=== PATIENT | female | born 1995 | race Caucasian/White ===

== ENCOUNTER 2016-07-04 12:47 | Inpatient (IN) | payer SELFPAY ==
[~2016-07-04] VITALS: Ht 162.6 cm; Wt 51.8 kg
--- NOTE | ~2016-07-04 | CON ---
PATIENT'S NAME: LIZBETH ANDRADE [facility] AGE: 20 Y [address] ROOM: [place] [address] LOCATION: ED ADMIT DATE: 07/04/2016 Consultation DISCHARGE DATE: FAMILY PHYSICIAN: Manish Rodriguez MD ATTENDING PHYSICIAN: Manish Rodriguez REFERRING PHYSICIAN: Cathy Peterson MD CHIEF COMPLAINT: This is a 20-year-old female, who was admitted today by Dr. Rodriguez after we discussed about her condition for evaluation of acute ulcerative colitis and control of symptoms of diarrhea and abdominal pain. HISTORY OF PRESENTING ILLNESS: This 20-year-old female, seen by Dr. Rodriguez in the office, has history of abdominal pain for the last 2 days, which was very severe, associated with nausea and vomiting. She had colonoscopy on the 30 of June for evaluation of abdominal pain and lower GI bleeding. She was diagnosed to have ulcerative colitis, seen by Dr. Peterson at that time. Pain is intermittent, severe. Stool frequency is up to 20 per day. There are small frequent stools, and occasionally, there are large voluminous stools. Her appetite has reduced, and she had lost about 10 pounds of weight in the last 2 weeks. She has been under training for the last 2 months under [employer]. MEDICATIONS: List include, 1. Ciprofloxacin twice daily. 2. Delzicol 400 mg twice daily. 3. Dicyclomine 20 mg 4 times a day. 4. Diphenhydramine and atropine, 2.5 4 times a day. ALLERGIES: NO KNOWN DRUG ALLERGIES. REVIEW OF SYSTEMS: This young lady looked quite sick. On admission, she was dehydrated and had severe weakness. PHYSICAL EXAMINATION: GENERAL: Reveals a well-developed young female, physical appearance of asthenic female, who is not in acute distress. EYES, EARS, NOSE, AND THROAT: Negative. HEAD: Normocephalic, atraumatic. NECK: Supple. No lymphadenopathy. CHEST: Clear to palpation, percussion, auscultation. CARDIAC: Both heart sounds normal. No S3 or murmur. PATIENT'S NAME: LIZBETH ANDRADE [facility] AGE: 20 Y [address] ROOM: [place] [id number] LOCATION: [facility] ADMIT DATE: 07/04/2016 Consultation DISCHARGE DATE: FAMILY PHYSICIAN: Manish Rodriguez MD ATTENDING PHYSICIAN: Manish Rodriguez VITAL SIGNS: Her blood pressure was 134/66; pulse was 114 on admission and now it is 90 per minute; and temperature 98.9 degrees Fahrenheit. Weight was 51.75 kg. LABORATORY DATA: Her lab data shows WBC count now is 5.6, in Dr. Rodriguez's office the band cells were 20%, which is a marked shift to the left. Her repeat CBC in the hospital now shows her white count is 5.6, RBCs 4.8, hemoglobin 14.5, hematocrit 44, and platelets 284; neutrophil percent is 52.9. PT and INR are normal. PH is 7.31, pCO2 of 54, pO2 of 15. Electrolytes are normal. Glucose 74. Anion gap is 13.7. CO2 is 22. BUN and creatinine are normal. Liver function tests are normal. Her CT scan of abdomen on 06/21/2016 was unremarkable. ASSESSMENT: With a chronic history of almost 2 years duration of abdominal pain, recurrent diarrhea, and worsening symptoms until she had colonoscopy and diagnosed to have ulcerative colitis, she most likely has ulcerative colitis, which is not under control yet, but her lab data has improved. She had stool cultures during her last 2 emergency visits. These stool cultures were positive for Staphylococcus aureus and Bacillus. This is quite possible that she may have superadded infection on the background of ulcerative colitis. RECOMMENDATIONS: 1. I agree with Dr. Rodriguez for starting her on ciprofloxacin 200 mg IV,twice daily. 2. She should continue the Delzicol 800 mg t.i.d. treatment for ulcerative colitis. 3. She should have steroid enemas 100 mg/60 mL twice daily. 4. She is to be well hydrated because of dehydration from recurrent loose stools. We appreciate sharing care of this patient. MD GLORIA MENDOZA/xander /[id number] CC: Manish Rodriguez MD d: 07/05/16 0433 t: 07/05/16 1424, CONSULTATION REPORT
[~2016-07-04 12:47] MED LIST: DELZICOL400 M1 PO; JUNEL FE 1.5 M1 EACH PO; MESALAMINE R
[2016-07-04] MEDS ORDERED: IBUPROFEN400 MG PO (14:41)
--- NOTE | 2016-07-04 19:40 | NUR ---
Significant Event: Pt admitted for service of Dr. Rodriguez. Pt reports that she has had bloody diarrhea for 3 weeks. She had a colonoscopy 06/30/16. Pt has had 2 BM's since admitted, first was bloody and second was blood clots in the bottom of the toilet. She has been vomiting for 3 days. She had some dry heaving here. She was given Zofran at 1420, pt verbalized relief and even felt hungry. She was able to drink Gatorade without emesis. Iv was started in her left hand with 1 attempt. She was started on cipro and Flagyl IV. Pt is pale with dry cracked lips and very dry skin. Her heart rate was 140 apically on admit. Follow up: monitor bloody stools
--- NOTE | 2016-07-05 04:23 | NUR ---
Significant Event: Patient is alert and oriented x 3. VSS on room air. HRs in the 80s-1 teens. SBPs in the 100s-130s. Max temp of 99.4. Up ad heron. BM x 6 this shift, blood tinged. GI MD saw last night, Hydrocortisone Enemas ordered BID. K pad in room for right sided abdomen/lateral back pain. Left hand IV with NS running at 100 ml/hr. Receiving intermittent antibiotics. Patient is pleasant and cooperative with cares. Follow up:
[2016-07-05 05:48] LABS: HEMOGLOBIN 9.3 g/dL (11.0-15.0); MCV 87.9 fl (83.0-98.0); MPV 9.4 fl (9.4-12.4); RDW-CV 12.3 % (11.9-14.6); WBC 6.5 K/uL (4.0-11.0)
[2016-07-05 05:49] LABS: HEMATOCRIT 27.6 % (33.0-46.0); MCH 29.6 pg (27.0-34.0); MCHC 33.7 gm/dL (32.0-36.5); PLATELET COUNT 342 K/uL (150-450); RBC 3.14 M/uL (3.50-5.00)
[2016-07-05 05:59] LABS: ALK PHOS 65 IU/L (33-138); ANION GAP 9.7 (10.0-19.0); AST 8 IU/L (10-40); BLOOD UREA NITROGEN 4 mg/dL (6-24); CALCIUM 7.6 mg/dL (8.5-10.5); CHLORIDE 108 mMol/L (96-110); CO2 26 mMol/L (22-32); CREATININE 0.5 mg/dL (0.5-1.1); ESTIMATED GFR (MDRD EQUATION) > 60; POTASSIUM 3.7 mMol/L (3.7-5.1); SODIUM 140 mMol/L (135-145); TOTAL BILIRUBIN 0.3 mg/dL (0.0-1.5); TOTAL PROTEIN 5.4 g/dL (6.0-8.4)
[2016-07-05 06:00] LABS: ALBUMIN 1.9 gm/dL (3.5-5.0); ALT < 10 IU/L (12-78)
[2016-07-05 06:53] LABS: ABSOLUTE NEUTROPHIL CT (ANC) 5.3 K/uL (1.8-7.8); BANDED NEUTROPHIL # 0.7 K/uL (0.0-0.1); BANDED NEUTROPHILS % 10 %; LYMPHOCYTE # 0.7 K/uL (0.8-4.0); LYMPHOCYTE % 10 %; MONOCYTE # 0.5 K/uL (0.0-1.0); SEGMENTED NEUTROPHIL # 4.6 K/uL (1.8-7.8); SEGMENTED NEUTROPHIL % 71 %
--- NOTE | 2016-07-05 15:06 | NUR ---
Met with patient at the bedside today. Introduced myself and explained the role of the care management department. 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 She states that she does not anticipate any discharge needs at this time. Will continue to follow and offer supports as needed.
--- NOTE | 2016-07-05 17:30 | NUR ---
Significant event: C/O cramping this am, relieved by Tyleol. Up ambulating. Ate 75% of breakfast and 50% of lunch. Bowel sounds hypoactive. Had 700 out in liquid BM it is brownish/reddish in color.
--- NOTE | 2016-07-06 04:04 | NUR ---
Significant Event: Patient is alert and oriented x 3. VSS on room air. HRs in the 70s-90s. SBPs in the 100s-120s. Afebrile. Up ad heron in room. Left hand IV running at TKO, receiving intermittent IV antibiotics. Tylenol given for abdominal cramping at 0342. K pad to abdomen. 400 ml out of liquid brownish/red stool. Patient is pleasant and cooperative with cares. Follow up: Home today
[2016-07-06] MEDS ORDERED: TYLENOL EXTRA500 MG PO (09:49)
[2016-07-06] MEDS ORDERED: DELTASONE20 M1 PO (09:49)
[2016-07-06] MEDS ORDERED: CIPRO500 MG PO (09:51)
== END 2016-07-06 10:30 | disposition disaster alternative care site (69) | DRG 386 ==
LOC: GPED 12:47
PROVIDERS: ADMIT Family Medicine
DX: K51.90 Ulcerative colitis, unspecified, without complications (principal); D62 Acute posthemorrhagic anemia; E86.0 Dehydration; D50.9 Iron deficiency anemia, unspecified
CPT/HCPCS: J0744; J2405; J7030; J7050; J7512

== ENCOUNTER 2016-07-17 14:31 | Inpatient (IN) | payer SELFPAY ==
[~2016-07-17] VITALS: Ht 162.6 cm; Wt 55.5 kg
--- NOTE | ~2016-07-17 | CON ---
PATIENT'S NAME: LIZBETH ANDRADE [facility] AGE: 21 Y [address] ROOM: [address] [place], [place] [address] LOCATION: [facility] ADMIT DATE: 07/17/2016 Consultation DISCHARGE DATE: FAMILY PHYSICIAN: Manish Rodriguez MD ATTENDING PHYSICIAN: Nevaeh Sanabira DATE OF CONSULTATION: 07/20/2016 REFERRING PHYSICIAN: MARKEL CHEEK MD REASON FOR CONSULTATION: Positive blood culture for strep viridans. HISTORY: Ms. Andrade is a 21-year-old female, who began having rectal bleeding around June 09 or . She was ultimately diagnosed with ulcerative colitis and has been treated with steroids. She, however, continued to have multiple loose bloody stools daily and then while she was at home, she felt like she was going to black out. It was noted that she was severely tachycardic, hypotensive, and had hemoglobin of 7.5. She had been given a couple units of blood and this has improved. She felt like at home, she maybe felt hot on occasion but could not check her temperature. She occasionally felt cold as well. She did not have paola rigors. On presentation to the hospital with her hypertension, she had blood cultures drawn and now one of the sets has turned up positive for strep viridans. The other set drawn at that time was negative. She was started on vancomycin orally and Zosyn on the and repeat blood cultures from yesterday, thus far have no growth. She did have a fever, while she was here in the hospital, per my conversation with Dr. Rodriguez, but I do not see it recorded. In the notes, she has the T-max that I can see is 99.7. In any case, she had a colonoscopy done that revealed severe colitis and biopsies were taken. Consideration for biologic but given her positive blood culture, ID was asked to see. She is not having as much tachycardia. She does not have any chest pain. Her breathing is okay. Her abdomen hurts all over, but especially on the right side. No urinary symptoms. She has a 1-year-old son at home and just turned 21, the day prior to admission. PAST MEDICAL HISTORY: Significant for ulcerative colitis and then she had a vaginal delivery in December 2014. MEDICATIONS: She came in on prednisone, Delzicol, and then she was on Cipro. She had been on metronidazole, apparently when she was hospitalized as well, and she is on oral contraceptives. PATIENT'S NAME: LIZBETH ANDRADE [facility] AGE: 21 Y [address] ROOM: [id number] [place], [place] [address] LOCATION: [facility] ADMIT DATE: 07/17/2016 Consultation DISCHARGE DATE: FAMILY PHYSICIAN: Manish Rodriguez MD ATTENDING PHYSICIAN: Nevaeh Sanabria ALLERGIES: NONE KNOWN. SOCIAL HISTORY: She does not smoke, does not drink, does not use illicit drugs. She has been in the , but apparently does not have any insurance coverage now. . FAMILY HISTORY: Positive for syncope in her father. Mom has depression, anxiety, multiple sclerosis, and borderline personality disorders. Diabetes runs in her family and heart problems. REVIEW OF SYSTEMS: All remaining review of systems is otherwise negative except as per the HPI with pertinent positives and negatives mentioned there. She has had a 10 pound weight loss with this illness, however. PHYSICAL EXAMINATION: GENERAL: She does not look like she has any acute distress. She is awake and alert and oriented. She is nontoxic. She is pale. VITAL SIGNS: Temperature is 98.1, blood pressure 101/64, pulse 85, respirations 21. HEENT: NC/AT. EOMI. PERRLA. Oropharynx clear. NECK: Supple. LUNGS: Clear. HEART: Little tachy, but regular. ABDOMEN: Soft. It is diffusely tender. EXTREMITIES: Without cyanosis, clubbing, or edema. SKIN: Without rash. LABORATORY DATA: White count was 13.2, hemoglobin 10.6, platelet count 479. Sedimentation rate was 85. Creatinine 0.5. CRP 17.7. Procalcitonin on 07/17 was 0.09. Blood cultures on 07/17, one of the sets grew strep viridans and the other was negative. Stool culture grew Staph aureus. C. diff toxin was negative. Giardia and Cryptosporidium antigens were negative. Repeat blood cultures on 07/19 have no growth today x3 sets. ASSESSMENT/PLAN: 1. Severe recalcitrant steroid nonresponsive ulcerative colitis. 2. Positive blood culture. PLAN: She has positive blood culture for viridans strep in one set, with the other PATIENT'S NAME: LIZBETH ANDRADE [facility] AGE: 21 Y [address] ROOM: [address] [place] [address] LOCATION: [facility] ADMIT DATE: 07/17/2016 Consultation DISCHARGE DATE: FAMILY PHYSICIAN: Manish Rodriguez MD ATTENDING PHYSICIAN: Nevaeh Sanbaria set being negative. She was afebrile at the time of admission, but apparently she has been febrile here, however I do not see it charted. Positive blood cultures, likely a contaminant and it is not in both sets. However, it is hard to know. This could certainly be from gut translocation as well. We would recommend continuing her on Zosyn for now and this will provide more than adequate coverage for the viridans strep should it be significant. Again, I do not even think that it probably is. From my standpoint, I think she should look at proceeding with biologic therapy, if that was felt to be her most effective therapy at this point in time, as the significance of the positive blood culture is not completely clear and can be easily cover it with antibiotics. If there is a significant bacteremia then the colon is the source and the source needs to have source control. Please call with questions. I did speak with Dr. Rodriguez today. MD SUDHIR DEE/mariel /[id number] d: 07/20/16 1505 t: 07/26/16 1452, CONSULTATION REPORT
--- NOTE | ~2016-07-17 | ER ---
PATIENT'S NAME: LIZBETH ANDRADE [facility] AGE: 21 Y [address] ROOM: [place] [address] LOCATION: [facility] ADMIT DATE: 07/17/2016 ER/Outpatient Report DISCHARGE DATE: FAMILY PHYSICIAN: Manish Rodriguez MD ATTENDING PHYSICIAN: Nevaeh Sanabria CHIEF COMPLAINT: Weakness, tunnel vision, and syncope. HISTORY OF PRESENT ILLNESS: The patient has a history of Crohn disease and was recently hospitalized for same. She states that she felt like she had been getting better on her steroids over the last 2 days, however, she began to have significant tunnel vision and weakness today which was causing her significant problems. She had been seen earlier this week. She states that her back has been a little bit uncomfortable, but she denies any significant pain at this time. She states her blood pressure is normally around 100 and her heart rate has been pretty fast lately. She denies any fevers associated with this or other issues. She did start steroids about 2 weeks ago and has been taking them as prescribed. She always has blood in her stool and has not noticed any changes with that. She has not had any issues, but has been a little nauseated. She had been able to keep things down until this afternoon. PAST MEDICAL HISTORY: Documented on the record and reviewed by me. SOCIAL HISTORY: Documented on the record and reviewed by me. MEDICATIONS: Documented on the record and reviewed by me. ALLERGIES: DOCUMENTED ON THE RECORD AND REVIEWED BY ME. REVIEW OF SYSTEMS: All systems reviewed and negative except as noted in the HPI. PHYSICAL EXAMINATION: VITAL SIGNS: Initial vital signs, blood pressure 97/54, pulse 137, respiratory rate 16, temperature 99.5, SpO2 is 99% on room air. Pain is rated 7/10. GENERAL: Age-appropriate female with very ill appearance, pale and weak. NEUROLOGIC: The patient is awake and alert. Her GCS is 15. She does follow commands in all extremities but is weak and deliberate in her speech and PATIENT'S NAME: LIZBETH ANDRADE [facility] AGE: 21 Y [address] ROOM: [place] [address] LOCATION: [facility] ADMIT DATE: 07/17/2016 ER/Outpatient Report DISCHARGE DATE: FAMILY PHYSICIAN: Manish Rodriguez MD ATTENDING PHYSICIAN: Nevaeh Sanabria. HEENT: Normocephalic, atraumatic. The eyes are PERRL. The oropharynx is slightly dry with no erythema or exudates. NECK: Supple without adenopathy. HEART: Tachycardic with no murmurs. Sinus rhythm on the monitor. LUNGS: Clear to auscultation bilateral. No rhonchi, wheezes, or rales. ABDOMEN: Very benign. No focal tenderness, rebound, guarding, or masses. BACK: Without tenderness in the midline. The flanks do not have CVA tenderness. EXTREMITIES: Cool with intact pulses, very pale, difficult to detect capillary refill. SKIN: Extremely pale with cool extremities, but otherwise grossly intact. LABORATORY DATA AND X-RAYS: No imaging was obtained for this patient. Labs: WBC is 14.0, hemoglobin of 8.8, and platelets of 695, slight bandemia of 2.1. INR is 1.1. Sodium 136, potassium 3.8, chloride is 98, CO2 is 26, BUN is 7, creatinine 0.8. GFR is greater than 60. LFTs are grossly normal. Serum lactate is 1.2. Repeat hemoglobin and hematocrit at 7.5, and 24. CRP is 12.8. Beta HCG is below detectable threshold. Urinalysis: No leukocytes or nitrates. No blood. Micro with 2-5 WBCs, no RBCs, 2-5 epithelial cells, few bacteria. Blood type is A positive. Procalcitonin 0.09. Orthostatic vital signs: The patient had stable blood pressures. Her heart rate increased over 20 beats per minute from lying to sitting. IMPRESSION: Severe orthostasis and hypovolemia with probable anemia. EMERGENCY DEPARTMENT COURSE: The patient was evaluated as above. I was concerned initially for sepsis based on her blood pressures being low and they did trend down to the low 80s at one point. She remained otherwise stable. She was given 2 L bolus of normal saline with no improvement in her blood pressures. We gave her some stress dose steroids to help stabilize her out of concern for possible adrenal suppression. She did not meet transfusion threshold. She has no outward signs of DVT or PE. Based on that presentation, I am recommending admission to the hospital. She will be admitted to the [facility] team for further evaluation and treatment. PATIENT'S NAME: LIZBETH ANDRADE [facility] AGE: 21 Y [address] ROOM: [place] [address] LOCATION: [facility] ADMIT DATE: 07/17/2016 ER/Outpatient Report DISCHARGE DATE: FAMILY PHYSICIAN: Manish Rodriguez MD ATTENDING PHYSICIAN: Nevaeh Sanabria MD FRIEDA PENA/xander /[id number] d: 07/18/16 1645 t: 07/19/16 0642, OUTPATIENT REPORT
--- NOTE | ~2016-07-17 | CON ---
PATIENT'S NAME: LIZBETH ANDRADE [facility] AGE: 21 Y [address] ROOM: [address] [place], [place] [address] LOCATION: [facility] ADMIT DATE: 07/17/2016 Consultation DISCHARGE DATE: FAMILY PHYSICIAN: Manish Rodriguez MD ATTENDING PHYSICIAN: Nevaeh Sanabria REFERRING PHYSICIAN: MARKEL CHEEK MD REASON FOR CONSULTATION: This is a 21-year-old female, who is re-admitted. She was seen earlier by me on 07/04/2016 when she was in [facility] with ulcerative colitis. She is re-admitted again with abdominal pain, diarrhea, and dizziness. HISTORY OF PRESENT ILLNESS: A 21-year-old female, who is complaining of dizziness at home, and she states she had tingling feeling around her lips. She was feeling like blackout, and she was also having difficulty hearing things. Her called me, and I asked him to bring to the emergency room for evaluation and possible admission. She has a long history of ulcerative colitis, for which she was taking Delzicol 400 mg 2 tablets 3 times a day. She had a course of ciprofloxacin during her last admission. She was advised hydrocortisone enemas, but she could not afford to take those. Instead, she was taking 40 mg of prednisone daily. She saw me in the clinic 2 days ago with continuing abdominal pain, and at which time, her evaluation showed that she had recurrent diarrhea, recurrent bleeding from GI tract and also persistent abdominal pain to level of 5 to 6 over 10 on a daily basis. I discussed with her possibility of switching from Delzicol to biologicals, and she agreed. I met the eligibility services representative from [employer], who had offered free samples of golimumab with brand name of Simponi. She is to have 200 mg at the outset followed by 100 mg after 2 weeks and then 100 mg subcu on monthly basis. Before she could visit again in the clinic, she had this relapse with dizziness. She was given 2 L of fluids in the emergency room, and at the floor, she is feeling much better. No dizziness and no blackout; however, her blood pressure is 82/60 on lying down and 83/60 on sitting up. For evaluation of pretreatment for golimumab, she was tested for hepatitis B surface antigen, chest x-ray, TB test, liver function tests, BUN, creatinine, and CBC. PAST MEDICAL HISTORY: Ulcerative colitis, anemia, she claims that she has anemia also from childhood. She had colonoscopy on June [address] Peterson, who had seen severe ulcerative colitis. MEDICATIONS: She has been on: 1. Ciprofloxacin. 2. Delzicol 800 mg t.i.d. 3. Occasional dicyclomine for abdominal pain. PATIENT'S NAME: LIZBETH ANDRADE [facility] AGE: 21 Y [address] ROOM: [id number] [place], [place] [address] LOCATION: [facility] ADMIT DATE: 07/17/2016 Consultation DISCHARGE DATE: FAMILY PHYSICIAN: Manish Rodriguez MD ATTENDING PHYSICIAN: Nevaeh Sanabria 4. Diphenhydramine and atropine 2.5 mg 4 times a day. SOCIAL HISTORY: She denies smoking or drinking. Her smokes. REVIEW OF SYSTEMS: A 10-point review of system was negative other than mentioned above. PHYSICAL EXAMINATION: GENERAL: Reveals an asthenic female, who is sitting up comfortably in bed at this point. VITAL SIGNS: Show weight is 51.9 kg, blood pressure in the ER was 116/71, here in the room is 83/60, pulse 73 per minute, respiration is 16 per minute, temperature 98.6 degrees Fahrenheit. She is admitted under Dr. Sanabria. HEAD: Normocephalic, atraumatic. NECK: Supple. No lymphadenopathy. EYES: Conjunctivae are pale. Pupils are equally reactive bilaterally. CHEST: Clear to palpation, percussion, auscultation. CARDIAC: Both heart sounds are normal. No S3 or murmur. ABDOMEN: Tender mostly in the right lower quadrant and left lower quadrant as well as hypogastrium. Bowel sounds are hyperactive. NEUROLOGICAL: Cranial nerves II through XII intact. Motor system intact. There are no lateralizing signs. MUSCULOSKELETAL: There is no restrictive joint disease. She moves all extremities equally. SKIN/INTEGUMENT: Pale. There are no rashes. No erythema nodosum or pyoderma gangrenosum. LABORATORY DATA: Today shows her white count is 14,000, hemoglobin is 7.5, RBC is 3.08, platelets are 695,000. Her pH is 7.31, pCO2 is 54, pO2 is 15 probably venous blood. Glucose is 187, calcium is 8.2, albumin is 2.0, globulin is 4.8, CRP is 12.8. Urinalysis showed wbc is 2 to 5, protein is 15, few bacteria seen. IMAGING DATA: She had a CT scan earlier in June, which showed lungs, liver, biliary tree, pancreas, kidneys were normal. Bowel and mesentery were normal. There was no ascites. No bowel wall thickening was seen at that time. Small amount of air was seen in the small intestine at the lower quadrant with possible gastroparesis. Inasmuch, her hemoglobin is 7.5 g, it was 8.5 g earlier. It was decided to give her 1 unit of packed cells. This was done in the emergency room. ASSESSMENT AND PLAN: PATIENT'S NAME: LIZBETH ANDRADE [facility] AGE: 21 Y [address] ROOM: [place] [address] LOCATION: [facility] ADMIT DATE: 07/17/2016 Consultation DISCHARGE DATE: FAMILY PHYSICIAN: Manish Rodriguez MD ATTENDING PHYSICIAN: Nevaeh Sanabria This lady has relapsing ulcerative colitis, which is in acute state with high CRP levels and now leukocytosis, which is partly from the steroid intake. However, she is not doing well in terms of her symptoms of bleeding, diarrhea, abdominal pain. Therefore, it was contemplated to start her on biological treatment. She is supposed to have Simponi sample starting early this week, which may even be treated while she is in the hospital. This needs to be checked with the GI nurse in the outpatient, Maria Esther Hi is aware of plan about starting on biological treatment. In the interim, she needs to be continued on IV steroids and Delzicol. We appreciate sharing care of this patient. MD GLORIA MENDOZA/xander /[id number] CC: Nevaeh Sanabria MD d: t: 03/13/17 1100, CONSULTATION REPORT
--- NOTE | ~2016-07-17 | DS ---
PATIENT'S NAME: LIZBETH ANDRADE [facility] AGE: 21 Y [address] ROOM: [place] [address] LOCATION: [facility] [place] ADMIT DATE: 07/17/2016 Discharge Summary DISCHARGE DATE: 07/29/2016 FAMILY PHYSICIAN: Manish Rodriguez MD ATTENDING PHYSICIAN: Nevaeh Sanabria DISCHARGE DIAGNOSES: 1. Uncontrolled ulcerative colitis. 2. Anemia due to acute gastrointestinal blood loss. 3. Near syncope and tachycardia. 4. Positive blood cultures for Streptococcus mitis. CONSULTS DURING ADMISSION: 1. Gastroenterology. 2. Infectious Disease. PROCEDURES DURING ADMISSION: None. HOSPITAL COURSE: The patient is a 21-year-old female, who was recently diagnosed with ulcerative colitis and was admitted for severe colitis symptoms, which were unresponsive to outpatient therapy. The patient was anemic with a hemoglobin of 7.5 and received 2 units of packed red blood cells. The patient was seen by Gastroenterology and was started on Remicade, which she received 2 doses in the hospital. The patient also grew out positive blood cultures that shows Streptococcus mitis and Infectious Disease was consulted and she was switched from Zosyn to p.o. Ceftin and completed the full course. Upon day of discharge, the patient was tolerating diet well, not feeling syncopal at all, and also having formed stools without any blood in them. DISCHARGE CONDITION: Stable. DISPOSITION: Home. DISCHARGE MEDICATIONS: Please see list. DISCHARGE INSTRUCTIONS: The patient is to follow up with Dr. Rodriguez in approximately 2 weeks. The patient is to follow up with Gastroenterology as directed. PAUL CHERY MD PATIENT'S NAME: LIZBETH ANDRADE [facility] AGE: 21 Y [address] ROOM: [place] [address] LOCATION: [facility] [place] ADMIT DATE: 07/17/2016 Discharge Summary DISCHARGE DATE: 07/29/2016 FAMILY PHYSICIAN: Manish Rodriguez MD ATTENDING PHYSICIAN: Nevaeh Sanabria/xander /[id number] d: 07/29/16 0752 t: 08/04/16 1253, DISCHARGE SUMMARY
--- NOTE | ~2016-07-17 | CON ---
PATIENT'S NAME: LIZBETH ANDRADE [facility] AGE: 21 Y [address] ROOM: [place] [address] LOCATION: [facility] ADMIT DATE: 07/17/2016 Consultation DISCHARGE DATE: FAMILY PHYSICIAN: Manish Rodriguez MD ATTENDING PHYSICIAN: Nevaeh Sanabria DATE OF CONSULTATION: 07/19/2016 REFERRING PHYSICIAN: MARKEL RUIZ MD CARDIOLOGY CONSULTATION REASON FOR CARDIOLOGY CONSULTATION: Tachycardia. HISTORY OF PRESENT ILLNESS: This is a 21-year-old female, admitted with near syncope secondary to dehydration and anemia due to her ulcerative colitis. She has received 1 unit of packed red blood cells for a hemoglobin of 7.5, and has currently rebounded to 10.1. She is currently under the care of Dr. Rodriguez as well as Dr. Ruiz with GI Service. This consult requested due to the patient's presyncope in the setting of palpitations as well as complaints of shortness of breath and jaw pain. Also of note, she is noted to have a sinus tachycardia with a rate of 130 to 150 beats per minute on her air sampling and monitoring. Of note, she has recently spiked a temperature of 103.3. She currently denies chest pain at rest. She has previous complaints of palpitations and chest pains with anxiety in the settings of tachycardia. Her main complaint at the time of this consult is of increasing abdominal pain. In relation to her ulcerative colitis, she has been noted to be having up to 20 loose stools per day. PAST MEDICAL HISTORY: 1. Ulcerative colitis. 2. Previous vaginal delivery in 2014. 3. Previous tooth extraction as a young child. FAMILY HISTORY: The patient's father had a history of neurocardiogenic syncope. Her mother had a history of depression and anxiety as well as multiple sclerosis. There is also extensive history of diabetes in her maternal grandparents. Her father's parents have an extensive history of heart problems including coronary artery disease and coronary artery bypass grafting. SOCIAL HISTORY: The patient denies ever using tobacco. She also denies alcohol or illicit drug use. PATIENT'S NAME: LIZBETH ANDRADE [facility] AGE: 21 Y [address] ROOM: [place] [address] LOCATION: [facility] ADMIT DATE: 07/17/2016 Consultation DISCHARGE DATE: FAMILY PHYSICIAN: Manish Rodriguez MD ATTENDING PHYSICIAN: Nevaeh Sanabria CURRENT MEDICATIONS: 1. Pepcid 20 mg IV twice daily. 2. Solu-Medrol 40 mg IV daily. 3. Zosyn 3.375 g IV every 8 hours. 4. Folic acid 400 mcg p.o. daily. MEDICATION ALLERGIES: No known medication allergies. REVIEW OF SYSTEMS: Pertinent positive review of systems are listed in the HPI. All other review of systems evaluated and negative. LABORATORY DATA AND IMAGING STUDIES: Diagnostics: CMS evaluation shows a sodium of 142, potassium 3.8, BUN of 4, creatinine 0.5, and glucose of 151. CBC evaluation shows a white blood cell count of 9.4, hemoglobin of 10.1, hematocrit of 31.3, and platelets of 420,000. PHYSICAL EXAMINATION: VITAL SIGNS: Temperature 103.3, pulse 113, respirations 15, blood pressure 103/63, and O2 saturation 98% on room air. The patient weighs 52.2 kg. SKIN: [place], warm, and dry. EYES: Sclerae clear. No xanthelasmas. ENT: Oral mucosa is pink and moist. No jugular venous distention. No carotid bruits. CHEST: Respirations are even and unlabored. LUNGS: Clear to auscultation. HEART: Regular rate and rhythm. Normal S1 and S2. She continues in a sinus tachycardia on her air sampling and monitoring, and her EKG confirms sinus tachycardia with no acute ST changes suggestive of acute coronary syndrome. ABDOMEN: Soft, but tender to palpation. MUSCULOSKELETAL: Gait is normal. EXTREMITIES: Peripheral pulses palpable. No clubbing, cyanosis, or edema. PSYCHIATRIC: Alert and oriented. Mood and affect are appropriate. IMPRESSION AND PLAN: Per Dr. Menezes: 1. Sinus tachycardia in the setting of acute abdominal pain as well as fever. 2. Ulcerative colitis, currently under the care of Gastroenterology Service and plans for a sigmoidoscopy in the a.m. 3. We will continue to monitor, evaluate, and treat as appropriate. Thank you for this consult. Thank you for allowing [facility] to interact in the care of this patient. PATIENT'S NAME: LIZBETH ANDRADE [facility] AGE: 21 Y [address] ROOM: [id number] [place], [place] [address] LOCATION: [facility] ADMIT DATE: 07/17/2016 Consultation DISCHARGE DATE: FAMILY PHYSICIAN: Manish Rodriguez MD ATTENDING PHYSICIAN: Nevaeh Sanabria SAMMIE MONTENEGRO MD DEH/modl /[id number] d: 07/20/16 1527 t: 08/11/16 1754, CONSULTATION REPORT
--- NOTE | ~2016-07-17 | HP ---
PATIENT'S NAME: LIZBETH ANDRADE [facility] AGE: 21 Y [address] ROOM: [place] [address] LOCATION: [facility] ADMIT DATE: 07/17/2016 History & Physical DISCHARGE DATE: FAMILY PHYSICIAN: Manish Rodriguez MD ATTENDING PHYSICIAN: Jazzy Escalante DATE OF SERVICE: CHIEF COMPLAINT: Near syncope. HISTORY OF PRESENT ILLNESS: Lizbeth is a 21-year-old female, who has recently diagnosed with ulcerative colitis, who has been feeling very poorly over this past week. She continues to have 12 to 20 loose bloody stools per day and just today she started having feeling like her heart was pounding out of her chest and like she was going to pass out. She presented to the ER for evaluation. They gave her IV fluids for hydration. Her hemoglobin on admit was 8.8 and after hydration it was 7.5. Her pulse initially 140, blood pressure 90 systolic. She states the stools have been no more bloody than usual. She is not having that good response with her ulcerative colitis medications and she was scheduled to see the GI doctor tomorrow to possibly getting on something injectable. She has lost 10 pounds in the last month and a half. She is currently on Cipro for some kind of infectious etiology of her stools, the last thing I could find was Staph aureus. She states she is eating, she is hungry. No nausea or vomiting. She avoids anything carbonated or cow's milk. She feels feverish and very weak. PAST MEDICAL HISTORY: Operations include a tooth extraction as young child and a colonoscopy. Hospitalizations include June 2016 for ulcerative colitis and vaginal delivery in December 2014. Illnesses, ulcerative colitis. MEDICATIONS: She is on; 1. Prednisone 20 mg daily. 2. Delzicol 800 mg t.i.d. 3. Cipro at a dose of 500 mg b.i.d. 4. Oral contraceptives. States she just took her last active pill today. ALLERGIES: NONE KNOWN. PATIENT'S NAME: LIZBETH ANDRADE [facility] AGE: 21 Y [address] ROOM: [place] [address] LOCATION: [facility] ADMIT DATE: 07/17/2016 History & Physical DISCHARGE DATE: FAMILY PHYSICIAN: Manish Rodriguez MD ATTENDING PHYSICIAN: Jazzy Escalante FAMILY HISTORY: Positive for neurocardiogenic syncope in her father. Mother with depression, anxiety, multiple scleroses, and borderline personality disorder. Diabetes is prevalent on mother's side to include both grandparents and aunt and uncle. Her mother was gestational diabetic as well. Father's side is more significant for heart problems, in paternal grandfather, aunt, father, and also her maternal grandfather. SOCIAL HISTORY: She is a nonsmoker, nondrinker, and no history of illicit drugs. She has been in the for 11 months and just recently returned from 5 months of training in [place]. She has gone December 28 through May 30 and felt great when she returned. She then started getting ill mid June with a subsequent diagnosis of ulcerative colitis. She is . Her is working with cattle and she has a [id number] son at home. REVIEW OF SYSTEMS: GENERAL: She has had 10-pound weight loss with this illness. HEENT: She wears contacts, otherwise negative. CARDIOVASCULAR: She has had her heart pounding today and her chest has felt tight. RESPIRATORY: She is very dyspneic with any exertion. Otherwise, no coughing or wheezing. GI: See HPI. She does have dry heaves as she takes the Delzicol on an empty stomach. : No symptoms at all. LAPEL PADDER: She just recently had some breakthrough bleeding as she had been off her pill to have the colonoscopy done. Today is her last day of active pills. DERM: Negative. NEURO: She will have some intermittent numbness and tingling of the left arm at times and has noticed a little bit of swelling in her ankles. PSYCH: She has been a little bit down because of this illness, but no suicidal thoughts whatsoever and she thinks this is just normal. PHYSICAL EXAMINATION: GENERAL: Lizbeth is a well-developed, well-nourished, pale, 21-year-old female. She is alert, oriented, and cooperative. VITAL SIGNS: Temperature is 99.5, pulse is 137 and regular, respirations 16, blood pressure 97/54, weight 118, O2 saturations 99%, and height 5 feet and 4 inches. HEENT: Pupils are equal and reactive. Extraocular muscles are intact. Sclerae clear. Oropharynx shows normal mucous membranes. No ulcers or open areas. NECK: Supple without adenopathy or thyromegaly. HEART: Regular rate and rhythm. Now down to 104 after 2 L of fluids. PATIENT'S NAME: LIZBETH ANDRADE [facility] AGE: 21 Y [address] ROOM: [place] [address] LOCATION: [facility] ADMIT DATE: 07/17/2016 History & Physical DISCHARGE DATE: FAMILY PHYSICIAN: Manish Rodriguez MD ATTENDING PHYSICIAN: Jazzy Escalante LUNGS: Lung melendrez are clear. ABDOMEN: Bowel sounds are present. Abdomen is soft. She is exquisitely tender in the epigastrium and moderately tender in the left lower quadrant. EXTREMITIES: Clear. No edema. No rash. Moves all extremities well. LABORATORY WORK: Her initial hemoglobin was 8.8 and after hydration, it was 7.5. Urinalysis looks pretty unremarkable. Blood type is A positive with no antibodies. CRP is elevated at 12.8. Lactate is normal at 1.2. Sodium 136, potassium 3.8, glucose 187, BUN 7, and creatinine 0.8. GFR is greater than 60. Liver enzymes are normal. Albumin is low at 2.0. White count is 14,000. Platelets 695,000. PT and PTT are normal. Procalcitonin is normal at 0.09. ASSESSMENT: Near syncope, thought to be due to a combination of dehydration and anemia above due to ulcerative colitis. PLAN: She is being admitted. She has received 2 L of IV fluids, is on her third liter, has been typed and crossed for blood. We will give her 1 unit of blood and see how she responds to that. She was given IV dose of steroids in the ER. We will continue her oral medications for ulcerative colitis. We will have GI consult on her and Dr. Rodriguez will assume care in the morning. We will obtain another set of cultures to see if there is any new infective organisms contributing to her illness. Prognosis is fair. JAZZY ESCALANTE MD BME/modl /[id number] D: [id number] T: [id number] HISTORY & PHYSICAL
[~2016-07-17 14:31] MED LIST changes: +CIPRO500 MG PO; +DELTASONE20 M1 PO; +IBUPROFEN400 MG PO; +TYLENOL EXTRA500 MG PO
[2016-07-17 15:42] LABS: HEMATOCRIT 27.6 % (33.0-46.0); HEMOGLOBIN 8.8 g/dL (11.0-15.0); MCH 28.6 pg (27.0-34.0); MCHC 31.9 gm/dL (32.0-36.5); MCV 89.6 fl (83.0-98.0); MPV 8.7 fl (9.4-12.4); RBC 3.08 M/uL (3.50-5.00); RDW-CV 13.2 % (11.9-14.6)
[2016-07-17 15:43] LABS: PLATELET COUNT 695 K/uL (150-450)
[2016-07-17 15:54] LABS: INR - (THERAPEUTIC) 1.1 (0.9-1.1); PROTIME 11.4 SECONDS (9.6-11.1); PTT 25 SECONDS (25-32)
[2016-07-17 16:04] LABS: ALK PHOS 85 IU/L (33-138); ALT 28 IU/L (12-78); ANION GAP 15.8 (10.0-19.0); AST 16 IU/L (10-40); BLOOD UREA NITROGEN 7 mg/dL (6-24); CALCIUM 8.2 mg/dL (8.5-10.5); CHLORIDE 98 mMol/L (96-110); CO2 26 mMol/L (22-32); CREATININE 0.8 mg/dL (0.5-1.1); ESTIMATED GFR (MDRD EQUATION) > 60; POTASSIUM 3.8 mMol/L (3.7-5.1); SODIUM 136 mMol/L (135-145); TOTAL PROTEIN 6.8 g/dL (6.0-8.4)
[2016-07-17 16:08] LABS: TOTAL BILIRUBIN 0.2 mg/dL (0.0-1.5)
[2016-07-17 16:14] LABS: ABSOLUTE NEUTROPHIL CT (ANC) 9.9 K/uL (1.8-7.8); BANDED NEUTROPHIL # 2.1 K/uL (0.0-0.1); BANDED NEUTROPHILS % 15 %; LYMPHOCYTE # 2.4 K/uL (0.8-4.0); LYMPHOCYTE % 17 %; MONOCYTE # 1.1 K/uL (0.0-1.0); SEGMENTED NEUTROPHIL # 7.8 K/uL (1.8-7.8); SEGMENTED NEUTROPHIL % 56 %
[2016-07-17 17:07] LABS: BILIRUBIN URINE NEGATIVE (NEGATIVE); BLOOD URINE NEGATIVE /UL (NEGATIVE); COLOR URINE YELLOW (YELLOW); GLUCOSE URINE NEGATIVE (NEGATIVE); KETONE URINE NEGATIVE (NEGATIVE); LEUKOCYTES URINE NEGATIVE /UL (NEGATIVE); NITRITE URINE NEGATIVE (NEGATIVE); PROTEIN URINE 15 mg/dL (NEGATIVE); SPEC GRAVITY URINE 1.005 (1.003-1.035); TURBIDITY URINE CLEAR (CLEAR); UROBILINOGEN URINE NORMAL (NORMAL)
[2016-07-17 17:15] LABS: BACTERIA URINE FEW (NEGATIVE); RBC URINE NEGATIVE #/HPF (NEGATIVE)
[2016-07-17 17:16] LABS: MUCUS URINE 1+ (NEGATIVE)
[2016-07-17 17:52] LABS: HEMOGLOBIN 7.5 g/dL (11.0-15.0)
--- NOTE | 2016-07-17 23:39 | NUR ---
PATIENT WAS ADMITTED FOR ULCERATIVE COLITIS THROUGH THE ER. AT HOME THE PATIENT REPORTS SHE HAD AN EPISODE OF SYNCOPE FOLLOWED BY NEARLY LOSING CONSCIOUSNESS. SHE DID NOT FALL. WAS PRESENT AND BROUGHT HER TO THE ER. SHE REPORTS THAT ALTHOUGH THERE IS BLOOD IN HER STOOL, THE AMOUNT HAS BEEN DECREASING OVER THE LAST 2 DAYS AND IS NOTHING MORE THAN WHAT IS HER NORMAL. SHE CURRENTLY DENIES DIZZINES OR LIGHT HEADEDNESS ALTHOUGH HER HR IS ELEVATED AND BP IS LOW. PATIENT IS INSTRUCTED TO CALL FOR ASSISTANCE WITH ALL NEEDS. PATIENT IS ALERT AND ORIENTED. HBG IN ER WAS LAST 7.5. THIS WAS FOLLOWING 2 L OF FLUIDS. SHE WAS SENT TO [facility] WITH ORDERS TO TRANSFUSE ONE UNIT OF PRBC. PATIENT IS PLACED ON TELE AND IS SINUS TACH. PATIENT DENIES ANY NEED FOR PAIN MEDICATION SHE RATES HER PAIN 3-4/10 WHICH SHE STATES IS TOLERABLE. ORDERS ARE OBTAINED FOR STOOL SAMPLES TO BE COLLECTED.
--- NOTE | 2016-07-18 04:09 | NUR ---
Significant Event: PATIENT ARRIVED ON NTU AT 191 ON 07/17 WITH THE PRIMARY COMPLAINT OF ULCERATIVE COLITIS. SHE REPORTS SHE NEARLY PASSED OUT AT HOME PRIOR TO REPORTING TO THE ER. IN THE ER SHE RECEIVED 2L OF IVF WHICH TOOK HER HBG TO 7.5. SHE RECEIVED 1UNIT PRBC UPON ARRIVAL. STOOL STUDIES WERE ORDERED. C.DIFF WAS NEGATIVE. HER STOOL DOES HAVE A LARGE AMOUNT OF BLOOD IN IT BUT SHE REPORTS THIS IS ACTUALLY IMPROVED OVER THE LAST 2 DAYS. PATIENT CALLS APPROPRIATELY AND IS STAND BY ASSIST. IVF INFUSING TO RIGHT A.C. BP ARE LOW AT 80-90/50-60. HR RANGES FROM 70-80 WHICH HAS IMPROVED WELL. NSR ON THE MONITOR. Follow up:
[2016-07-18 04:43] LABS: HEMATOCRIT 26.5 % (33.0-46.0); HEMOGLOBIN 8.4 g/dL (11.0-15.0); MCH 28.3 pg (27.0-34.0); MCHC 31.7 gm/dL (32.0-36.5); MCV 89.2 fl (83.0-98.0); MPV 8.9 fl (9.4-12.4); RBC 2.97 M/uL (3.50-5.00); RDW-CV 13.8 % (11.9-14.6); WBC 6.3 K/uL (4.0-11.0)
[2016-07-18 04:48] LABS: PLATELET COUNT 458 K/uL (150-450)
[2016-07-18 04:57] LABS: ALK PHOS 67 IU/L (33-138); ALT 19 IU/L (12-78); ANION GAP 9.4 (10.0-19.0); AST 8 IU/L (10-40); BLOOD UREA NITROGEN 8 mg/dL (6-24); CALCIUM 7.6 mg/dL (8.5-10.5); CHLORIDE 109 mMol/L (96-110); CO2 28 mMol/L (22-32); CREATININE 0.5 mg/dL (0.5-1.1); ESTIMATED GFR (MDRD EQUATION) > 60; POTASSIUM 4.4 mMol/L (3.7-5.1); SODIUM 142 mMol/L (135-145); TOTAL PROTEIN 5.6 g/dL (6.0-8.4)
[2016-07-18 05:00] LABS: ALBUMIN 1.7 gm/dL (3.5-5.0); TOTAL BILIRUBIN 0.3 mg/dL (0.0-1.5)
[2016-07-18 06:16] LABS: ABSOLUTE NEUTROPHIL CT (ANC) 4.7 K/uL (1.8-7.8); BANDED NEUTROPHIL # 1.5 K/uL (0.0-0.1); BANDED NEUTROPHILS % 24 %; LYMPHOCYTE # 1.3 K/uL (0.8-4.0); LYMPHOCYTE % 20 %; MONOCYTE # 0.3 K/uL (0.0-1.0); SEGMENTED NEUTROPHIL # 3.2 K/uL (1.8-7.8); SEGMENTED NEUTROPHIL % 51 %
--- NOTE | 2016-07-18 08:00 | NUR ---
Late note entry due to being locked out of computer. Pt did not recieve a bath today was not feeling well. she did wash her hands and face, did her own pericares, and brushed teeth. I changed her linens also.
--- NOTE | 2016-07-18 13:44 | NUR ---
Significant Event: PT ALERT AND ORIENTED X3. TRANSFERS WITH STAND-BY ASSIST. VOIDS PER BATHROOM. PT HAS REPORTED DIARRHEA STOOLS WITH BLOOD NOTED. HEMOGLOBIN THIS AM WAS 8.4; 1 UNIT OF PRBC'S GIVEN THIS SHIFT WITH NO DIFFICULTY. VITAL SIGNS STABLE; ON ROOM AIR. ABDOMEN STILL REMAINS TENDER/CRAMPY. PRN TYLENOL GIVEN AT 0958, WITH SOME RELIEF. IV TO R)AC INFUSING FLUIDS WITHOUT COMPLICATIONS. REGULAR DIET; PT IS LACTOSE FREE. PT HAD POSITIVE BLOOD CULTURES THIS AM-GRAM POSITIVE COCCI IN CHAINS. WAS NOTIFIED AND PT WAS STARTED ON IV ZOSYN. HAS BEEN AT BEDSIDE THIS AFTERNOON. Follow up: CONTINUE TO MONITOR.
--- NOTE | 2016-07-18 13:46 | NUR ---
Introduced self and CM role to Pao and her family who was at bedside. Pao tells me that she lives here in [place] with her and it is her plan to return there upon discharge. Unsure of when she will be dismissed as she is getting blood right now and doctors also started her on IV Abxs for positive blood cultures. Pao tells me that she does not have insurance, but I did make sure that she had the financial assistance application in her admissions packet. Pao is hopeful that doctors will have her do a few days of IV Abxs and then she can go home. I let her know that I would follow for the duration of her stay here and once we knew what her discharge needs would be, I would come back and visit with her again. CM to continue to follow and assist. Plan home.
[2016-07-19 04:10] LABS: HEMATOCRIT 31.3 % (33.0-46.0); HEMOGLOBIN 10.1 g/dL (11.0-15.0); MCH 28.9 pg (27.0-34.0); MCHC 32.3 gm/dL (32.0-36.5); MCV 89.7 fl (83.0-98.0); MPV 8.6 fl (9.4-12.4); PLATELET COUNT 420 K/uL (150-450); RBC 3.49 M/uL (3.50-5.00); RDW-CV 14.1 % (11.9-14.6); WBC 9.4 K/uL (4.0-11.0)
[2016-07-19 04:22] LABS: ANION GAP 10.8 (10.0-19.0); BLOOD UREA NITROGEN 4 mg/dL (6-24); CALCIUM 7.9 mg/dL (8.5-10.5); CHLORIDE 107 mMol/L (96-110); CO2 28 mMol/L (22-32); CREATININE 0.5 mg/dL (0.5-1.1); ESTIMATED GFR (MDRD EQUATION) > 60; POTASSIUM 3.8 mMol/L (3.7-5.1); SODIUM 142 mMol/L (135-145)
[2016-07-19 05:11] LABS: ABSOLUTE NEUTROPHIL CT (ANC) 7.5 K/uL (1.8-7.8); BANDED NEUTROPHIL # 5.5 K/uL (0.0-0.1); BANDED NEUTROPHILS % 59 %; LYMPHOCYTE # 1.4 K/uL (0.8-4.0); LYMPHOCYTE % 15 %; MONOCYTE # 0.3 K/uL (0.0-1.0); SEGMENTED NEUTROPHIL % 21 %
--- NOTE | 2016-07-19 05:32 | NUR ---
Significant Event: Patient is alert and oriented x3. VSS. Moderate strength. Denies N/T. Denies DIMAS. Pain is controlled with PO tylenol. Follows commands. PERRLA. Sinus rhythm to sinus tachycardic. Pulses are 2+. No edema. SBP are in the 100's. Room air. Regular diet-lactose intolerant. Last BM 07/19 bloody and loose. Up with SBA and GB. Significant history of anxiety and depression. PIV in right AC with D5 NS at 125- tender to touch. Patient experienced chest/jaw/ left arm pain-was treated with xanax and protonix- after treatment patient did not c/o pain. Follow up: Monitor stools. IV Zosyn running now.
--- NOTE | 2016-07-19 15:51 | NUR ---
Attempted to see patient 2 times today but was gone for a procedure or having a procedure done in her room. Will attempt again tomorrow.
--- NOTE | 2016-07-19 19:41 | NUR ---
Significant Event: Patient alert and oriented x3. Sinus tachycardia noted on tele. Later this morning patient started consistently sitting in the 150's for heart rate. Temp at this time was 103.3 tympanically. notified. Patient given tylenol and fan was placed on patient. notified also, orders received for blood cultures x3 and to start patient on IV flagyl. Last temp was 99.3. All other VSS, on room air. Voids per bathroom, is on her period. Did have loose stools with blood x2 this shift, GI aware. IV to R) AC infusing D5 NS at 100 mL/hr with intermittent antibiotics. Family at bedside. Follow up: VS q 4 hours. Up with 1PA. Regular diet, lactose intolerant. Sigmoidoscopy in the AM, NPO after midnight.
[2016-07-20 04:16] LABS: HEMATOCRIT 33.4 % (33.0-46.0); HEMOGLOBIN 10.6 g/dL (11.0-15.0); MCH 28.4 pg (27.0-34.0); MCHC 31.7 gm/dL (32.0-36.5); MCV 89.5 fl (83.0-98.0); MPV 8.7 fl (9.4-12.4); PLATELET COUNT 479 K/uL (150-450); RBC 3.73 M/uL (3.50-5.00); WBC 13.2 K/uL (4.0-11.0)
[2016-07-20 04:34] LABS: ANION GAP 10.3 (10.0-19.0); BLOOD UREA NITROGEN 5 mg/dL (6-24); CALCIUM 7.9 mg/dL (8.5-10.5); CHLORIDE 104 mMol/L (96-110); CO2 31 mMol/L (22-32); CREATININE 0.5 mg/dL (0.5-1.1); ESTIMATED GFR (MDRD EQUATION) > 60; POTASSIUM 3.3 mMol/L (3.7-5.1); SODIUM 142 mMol/L (135-145)
[2016-07-20 05:11] LABS: ABSOLUTE NEUTROPHIL CT (ANC) 11.6 K/uL (1.8-7.8); BANDED NEUTROPHIL # 6.7 K/uL (0.0-0.1); BANDED NEUTROPHILS % 51 %; LYMPHOCYTE # 1.3 K/uL (0.8-4.0); LYMPHOCYTE % 10 %; MONOCYTE # 0.1 K/uL (0.0-1.0); SEGMENTED NEUTROPHIL # 4.9 K/uL (1.8-7.8); SEGMENTED NEUTROPHIL % 37 %
--- NOTE | 2016-07-20 07:45 | NUR ---
Significant Event: Patient is alert and oriented x3. VSS. Follows commands. Denies DIMAS. Denies N/T. PERRLA. Can run sinus tachycardic. SBP in low 100's. Room air. Regular diet-lactose intolerant. SBA in room. PIV in right AC with D5 NS at 100ml/hr. Pain has been at a tolerable level. Bowels are active x4-last BM 07/20- stool is loose with blood tinge. Follow up: NPO since midnight for sigmoidoscopy today.
--- NOTE | 2016-07-20 11:40 | NUR ---
Patient requested care management to come to her room due to some financial questions. Introduced self to patient and her Aunt Lorin. SW Tour Driver Belen also present. They have the financial assistance form and it is filled out but at home. Wondering about Medicaid. I got permission to give Faby with [facility] a referral. No other needs. 1320 Faby give the referral.
--- NOTE | 2016-07-20 12:50 | NUR ---
Significant Event: PT ALERT AND ORIENTED X3. TRANSFERS WITH STAND-BY ASSIST. VOIDS PER BATHROOM. CURRENTLY ON MENSES; PT STATES THAT SHE IS JUST "SPOTTING AND NO HEAVY MENSTRUAL BLEEDING NOTED." VITAL SIGNS STABLE; ON ROOM AIR. TACHYCARDIA AT TIMES WITH RATES IN THE LOW 100'S. AFEBRILE. COMPLAINS OF ABDOMINAL CRAMPING/TENDERNESS. TYLENOL GIVEN AT 1046, WITH RELIEF. PT WENT DOWN TO [facility] FROM [id number] FOR A SIGMOIDOSCOPY; RESULTS SHOWED SEVERE COLITIS AND PT MAY NEED A COLECTOMY PER GASTROENTEROLOGY'S RECOMMENDATIONS. POTASSIUM LEVEL WAS 3.3 THIS AM; 40 MEQ IV POTASSIUM GIVEN X1. IV TO R)AC INFUSING WITHOUT DIFFICULTIES; INTERMITTENT ANTIBIOTICS. LACTOSE FREE DIET. INFECTIOUS DISEASE MD SAW THE PT THIS AFTERNOON. Follow up: CONTINUE TO MONITOR.
--- NOTE | 2016-07-21 04:13 | NUR ---
Significant Event: Patient A/Ox3. Denies numbness and tingling. Moves all extremities spontaneously and to command. Up SBA. Tachy at times in low-mid 100s. On oral vanco and IV zosyn. Peripheral IV to right forearm running fluids to TKO. VSS on room air. Afebrile. x2 loose stools this shift, both brown colored. Complains of abdominal/cramp pains, uses restroom and tylenol for relief. Currently on menstrustral cycle - patient states it is spotty. Transfers SBA. No complaints of pain. Runs sinus tachy. Regular diet. Lactose free diet. Skin TB test administered at 2049. Read test in 48-72 hours (There is a note in the eMAR). Follow up:
[2016-07-21 05:00] LABS: BASOPHIL % 0.2 %; EOSINOPHIL # 0.1 K/uL (0.0-0.5); EOSINOPHIL % 1.3 %; HEMATOCRIT 31.1 % (33.0-46.0); HEMOGLOBIN 9.7 g/dL (11.0-15.0); IMMATURE GRANULOCYTE # 0.1 K/uL (0.0-0.3); IMMATURE GRANULOCYTE % 1.5 %; LYMPHOCYTE # 2.6 K/uL (0.8-4.0); LYMPHOCYTE % 31.7 %; MCH 28.4 pg (27.0-34.0); MCHC 31.2 gm/dL (32.0-36.5); MCV 90.9 fl (83.0-98.0); MONOCYTE # 0.6 K/uL (0.0-1.0); MONOCYTE % 6.7 %; MPV 9.1 fl (9.4-12.4); NEUTROPHIL # (ANC) 4.8 K/uL (1.8-7.8); NEUTROPHIL % 58.6 %; NRBC % 0 /100WBC (0-0.00); PLATELET COUNT 408 K/uL (150-450); RBC 3.42 M/uL (3.50-5.00); RDW-CV 14.2 % (11.9-14.6); WBC 8.2 K/uL (4.0-11.0)
[2016-07-21 05:13] LABS: ANION GAP 9.6 (10.0-19.0); CHLORIDE 106 mMol/L (96-110); CO2 28 mMol/L (22-32); CREATININE 0.5 mg/dL (0.5-1.1); ESTIMATED GFR (MDRD EQUATION) > 60; POTASSIUM 3.6 mMol/L (3.7-5.1); SODIUM 140 mMol/L (135-145)
[2016-07-21 05:14] LABS: BLOOD UREA NITROGEN 11 mg/dL (6-24)
--- NOTE | 2016-07-21 12:00 | NUR ---
Significant Event: A/O X3, SBA, up in room, showered, voids per toilet, small loose BM, having menses, IVF L)FA, Power Porter saline lock in R)upper arm, HGB 9.7 today, tolerates lactose free diet, Follow up: Read Tb test on R)FA tomorrow if Tb tests/labs are negative plan for Remicade infusion on Monday
--- NOTE | 2016-07-21 15:39 | NUR ---
A - NUT F/U. S/P SIGMOIDOSCOPY -SEVERE COLITIS - MAY NEED COLECTOMY. LABS: K+ 3.6, GLU 131, ALB 1.7, CRP 8.37 MEDS: PEPCID, VANCO, D5NS, SOLUMEDROL, ZOSYN DIET: LOW LACTOSE. INTAKE: MOSTLY 100% - MEALS SMALL. ENSURE CLEAR TID - 100% NEEDS: [id number] KCAL, 51-61 G PRO D - ALTERED GI FUNCTION R/T COLITIS AEB SIGMOIDOSCOPY. I - GOAL FOR ORAL INTAKE TOLERANCE. WILL CONTINUE ENSURE CLEAR AT THIS TIME. M/E - WILL MONITOR INTAKE AND GI FUNCTION F/U IN 4-5 DAYS.
--- NOTE | 2016-07-21 17:26 | NUR ---
Patient is alert and oriented, VSS, on room air. Transferred from [facility] today. She is indpendent in the room and can go off the unit with staff. She has a L) forearm IV infusing at TKO and IVAB, also has a R) upper midline that is saline locked. She is still having loose stools, but less blood in them. Will need to be negative for TB (precautionary) before she can start remicaid on monday. She will probably be here until her next dose next monday. Regular diet but lactose free, she has soy milk in the fridge.
--- NOTE | 2016-07-22 05:13 | NUR ---
Significant Event: Patient is alert and oriented x 3. VS WNL on RA. Ambulates with standby assist. Is able to go outside and or off the floor with staff assist. Lactose free regular diet. TB test is to be read in the AM. IV to L FA with fluids running. Midline placement in upper R) FA scheduled to start Remicade on Monday. Continues to have mild cramps and diarrhea. Follow up: monitor stools and check TB test
--- NOTE | 2016-07-22 10:45 | NUR ---
Followed up with patient about discharge planning. Still has no needs at this time. Let her know Faby with [employer] is aware of her need to apply for Medicaid. Wrote my name on her marker board. Will continue to follow.
--- NOTE | 2016-07-22 17:27 | NUR ---
Significant Event:Is A/O.Some abd cramping at times.IV Lt.forearm.No N/V.Has had 3 loose stools.Voiding ok.Is having her menses.To have TB test read tory at 1930.Would like to talk to manganese heater.Is up ad heron. Follow up:
--- NOTE | 2016-07-23 04:23 | NUR ---
Significant Event: PATIENT IS ALERT AND ORIENTED X4 AMBULATES THROUGHOUT THE BUILDING WITH STAFF PRESENT. UP AT ANDREA IN ROOM. HAD 2 DIARRHEA LOOSE STOOLS THIS SHIFT. GAVE TYLENOL 0206 AT FOR STOMACH CRAMPS STATED PROVIDED RELIEF. ATIVAN WAS ALSO GIVEN AT THIS TIME FOR RESTLESS. RESTED AFTERWARDS DID CALL FOR BATHROOM ASSISTANCE PER DIZZINESS UPON RISING. TB TEST NEEDS READ BY CORPORATE BANKING OFFICER PRIOR TO STARTING NEW IV THERAPY THIS AM. IV TO L FA TKO, MIDLINE IN UPPER R FA. REMICADE TO START THIS AM. WOULD LIKE DIETARY CONSULT ON MONDAY ORDER IN COMPUTER. VERY PLEASANT AND COORPERAIVE WITH CARES. Follow up:
[2016-07-23 06:02] LABS: BASOPHIL % 0.2 %; EOSINOPHIL # 0.5 K/uL (0.0-0.5); EOSINOPHIL % 4.7 %; HEMATOCRIT 32.2 % (33.0-46.0); HEMOGLOBIN 9.9 g/dL (11.0-15.0); IMMATURE GRANULOCYTE # 0.2 K/uL (0.0-0.3); IMMATURE GRANULOCYTE % 1.4 %; LYMPHOCYTE # 2.7 K/uL (0.8-4.0); LYMPHOCYTE % 25.6 %; MCH 28.1 pg (27.0-34.0); MCHC 30.7 gm/dL (32.0-36.5); MCV 91.5 fl (83.0-98.0); MONOCYTE # 0.9 K/uL (0.0-1.0); MONOCYTE % 8.3 %; MPV 8.9 fl (9.4-12.4); NEUTROPHIL # (ANC) 6.2 K/uL (1.8-7.8); NEUTROPHIL % 59.8 %; NRBC % 0 /100WBC (0-0.00); PLATELET COUNT 441 K/uL (150-450); RBC 3.52 M/uL (3.50-5.00); RDW-CV 13.6 % (11.9-14.6); WBC 10.5 K/uL (4.0-11.0)
[2016-07-23 06:34] LABS: ALK PHOS 77 IU/L (33-138); ALT 23 IU/L (12-78); ANION GAP 13.1 (10.0-19.0); AST 11 IU/L (10-40); BLOOD UREA NITROGEN 11 mg/dL (6-24); CALCIUM 8.2 mg/dL (8.5-10.5); CHLORIDE 103 mMol/L (96-110); CO2 27 mMol/L (22-32); CREATININE 0.5 mg/dL (0.5-1.1); ESTIMATED GFR (MDRD EQUATION) > 60; POTASSIUM 4.1 mMol/L (3.7-5.1); SODIUM 139 mMol/L (135-145); TOTAL PROTEIN 6.3 g/dL (6.0-8.4)
[2016-07-23 06:35] LABS: TOTAL BILIRUBIN 0.2 mg/dL (0.0-1.5)
--- NOTE | 2016-07-23 10:29 | NUR ---
CONSULT NOTED. PT W/ QUESTIONS REGARDING IDEAS FOR SNACKS. MEDS INCREASE PT APPETITE AND METABOLISM. DISCUSSED HI-SANNA, HI-PRO SNACKS THAT PT CAN TOLERATE. REC PT EAT 6 TIMES DAILY. PHONE # GIVEN, ENCOURAGED TO CALL W/ QUESTIONS.
--- NOTE | 2016-07-23 15:47 | NUR ---
Patient is alert and oriented, slightly hypotensive and tachycardic. Independent in room, can go off the unit with staff due to IV pole. Has L) forearm IV with TKO, good blood return. R) upper midline is saline locked with no blood return. She wants a dietary consult to learn more about what to eat with her colitis. She will receive Remicade tonight starting around 1800, this is a one-to-one infusion. She will be here for a week then receive another dose next monday.
--- NOTE | 2016-07-23 20:24 | NUR ---
d:Orders recevied for patient to receive remicade infusion. i:Patient had been educated on the drug and agreed to proceed. Accurate weight was obtained. The drug was prepared by pharmacy and dose double checked by nursing. The patient had a left forearm IV site present with good blood return. r:The infusion was given (titrating up as instructed in policy) without any s/s of reaction. Vitals remained stable throughout the infusion. Patient denied feeling any s/s reaction. p:Will continue to monitor pt closely post infusion for any s/s of delayed reaction. Hazardous drug precaution sign posted and will continue to be observed for 48 hrs from time infusion complete. Jessica MARRERO
--- NOTE | 2016-07-24 05:10 | NUR ---
Significant Event: ALERT AND ORIENTATED X4 UP AT [facility] MAY WALK THE FACILITY WITH STAFF PRESENT. STATES WANTS TO GO TO [facility] IN AM. HAD FIRST TREATMENT OF REMICADE NO ILL SYMPTOMS AFTER TREATMENT. PATIENT DID HAVE ATIVAN DURING ADMINISTRATION. TACHY THIS SHIFT. 1 STOOL THIS SHIFT SOFT FORMED NO LIQUID BM NOTED. IV TO L) FA TKO. MIDLINE TO UPPER R) ARM SL. NO COMPLAINTS OF PAIN OR DISCOMFORT. REST COMFORTABLY THIS SHIFT. Follow up: CONTINUE TO MONITOR .
--- NOTE | 2016-07-24 15:51 | NUR ---
Patient is alert and oriented, VSS, on room air. Indpendent in cares. IVs to L) forearm is saline locked with no blood return. R) upper midline is also saline locked with no blood return. She is able to walk off the unit for periods of time. She likes to take her Vanco PO with applesauce.
--- NOTE | 2016-07-25 04:28 | NUR ---
Significant Event: ALERT AND ORIENTATED X4. UP AT [facility] NEW ORDER TO LEAVE FLOOR UNATTENDED BY STAFF. REGULAR DIET LACTOSE FREE. INDEPENDENT WITH CARES. STOOLS ARE SOFT FORMED WITH NO VISIBLE BLOOD NOTED IN THEM. MINIMAL CRAMPS THIS SHIFT. CONTINUES TO HAVE A TACHY PULSE. IV T L) FA SALINE LOCKED. R) UPPER MIDLINE. LIKES TO TAKE ORAL MED WITH APPLESAUCE. COORPITIVE WITH CARES. Follow up:
--- NOTE | 2016-07-25 10:40 | NUR ---
Spoke with Jess De Jesus, Patients drug Remicade is very expensive, possibly $5000 each dose. Will need it on a weekly basis for a duration then every 8 weeks for the rest of her life. Could be dismissed home however no payer source for this medication. Referral in [facility]'s hands but will follow up with them. 1150 Spoke to Faby with [facility]. She will meet with patient today. May have to apply for disability. 1340 Faby has meet with patient and will apply for Medicaid. Had been on it in the past but missed a deadline and lost the benefit. She will keep me posted on progress.
--- NOTE | 2016-07-25 14:59 | NUR ---
A-NUTRITION F/U 07/23 LABS REVIEWED: ALB 2.0, CRP 2.36. CRP DOWN FROM 17.70 ON 07/20 MEDS: ATIVAN, AMBIEN, SOLUCORTEF, DELTASONE DIET RX: LOW LACTOSE DIET. PO INTAKE 75-100% ENSURE CLEAR D/C PER PT REQUEST EST NUTR NEEDS: [id number] KCALS AND 51-61 GM PROTEIN D-AT NUTRITION RISK W/ALT. GI FXN R/T COLITIS AEB SIGMOIDSCOPY I-CONTINUE W/CURRENT DIET RX M/E-GOAL: PO INTAKE >/=75% FOR DURATION OF ADMIT 1)F/U PO INTAKE AND POC IN 3-5 DAYS 2)ASSIST NEEDED
--- NOTE | 2016-07-25 15:40 | NUR ---
Patient is alert and oriented, independent in cares. L) FA IV is saline locked with no blood return, R) upper midline is saline locked with great blood return this morning. Received first dose of Remicade on monday, will remain with us to receive second dose this monday. Can ambulate off the unit by herself.
--- NOTE | 2016-07-26 04:44 | NUR ---
Significant Event: Patient is alert and oriented x 3. VSS on room air. Up ad heron. Denies any pain. Right upper arm midline IV, saline locked. Left forearm IV, saline locked. No BMs this shift. Voiding well. Patient is pleasant and cooperative with cares. Follow up:
[2016-07-26 05:21] LABS: HEMATOCRIT 32.4 % (33.0-46.0); MCH 28.1 pg (27.0-34.0); MCHC 30.9 gm/dL (32.0-36.5); MPV 8.7 fl (9.4-12.4); RBC 3.56 M/uL (3.50-5.00); RDW-CV 13.4 % (11.9-14.6); WBC 12.6 K/uL (4.0-11.0)
[2016-07-26 05:25] LABS: PLATELET COUNT 594 K/uL (150-450)
[2016-07-26 05:35] LABS: ANION GAP 11.4 (10.0-19.0); BLOOD UREA NITROGEN 17 mg/dL (6-24); CALCIUM 8.3 mg/dL (8.5-10.5); CHLORIDE 103 mMol/L (96-110); CO2 30 mMol/L (22-32); CREATININE 0.6 mg/dL (0.5-1.1); ESTIMATED GFR (MDRD EQUATION) > 60; POTASSIUM 4.4 mMol/L (3.7-5.1); SODIUM 140 mMol/L (135-145)
[2016-07-26 06:14] LABS: ABSOLUTE NEUTROPHIL CT (ANC) 8.1 K/uL (1.8-7.8); BANDED NEUTROPHIL # 1.9 K/uL (0.0-0.1); BANDED NEUTROPHILS % 15 %; LYMPHOCYTE # 2.1 K/uL (0.8-4.0); LYMPHOCYTE % 17 %; MONOCYTE # 1.5 K/uL (0.0-1.0); SEGMENTED NEUTROPHIL # 6.2 K/uL (1.8-7.8); SEGMENTED NEUTROPHIL % 49 %
--- NOTE | 2016-07-26 15:26 | NUR ---
Patient is independent in cares. Upper R) arm has midline with good blood return that is saline locked, L) forearm is saline locked with no blood return. One semi formed stool this shift. Hgb was 10.0. Occassional cramping of the abdomen otherwise no pain. Has a few movies from Pediatrics to watch. Will be here until next dose of Remicade. Hazardous Drug precautions are cleared.
--- NOTE | 2016-07-27 03:32 | NUR ---
Significant Event:PT AAOX3.INDEPENDENT IN ROOM AND HOSPITAL.DENIES PAIN WHEN ASKED. MIDLINE TO RIGHT UPPER ARM FLUSHED WELL WITH GOOD BLOOD RETURN,SALINE LOCK TO LEFT FOREARM FLUSHED WELL NO BLOOD RETURN. DOES HAVE BM DURING SHIFT. VOIDING WITH NO COMPLICATIONS. DOES STATE THAT SHE GETS A LITTLE SAD AND MISSES HER SON,DID TALK TO A FEW FRIENDS ON THE PHONE AND STATES THAT THAT DID HELP. USES CALL LIGHT APPROP. Follow up:
--- NOTE | 2016-07-27 15:30 | NUR ---
Spoke to Adilene at [id number], about assistance with Remicade cost. I need to speak to Jazmyne but she will not be back until Monday but she will leave a message to have her call me.
--- NOTE | 2016-07-27 17:59 | NUR ---
Significant Event:Is A/O.Pretty comfortable today.Voiding ok & had 1 soft brown stool with no blood notd.Up ad heron.SL upper Rt.arm & midline Lt.Pleasant. Follow up:
--- NOTE | 2016-07-28 04:30 | NUR ---
Significant Event:PT AAOX3.VERY PLEASANT WITH CARES.INDEPENDENT IN ROOM.USES CALL LIGHT APPROP. WHEN NEEDING ASSISTANCE.MIDLINE TO RIGHT UPPER ARM, FLUSHES WELL AND HAS GOOD BLOOD RETURNS. PT DENIES PAIN WHEN ASKED.DID REQUEST PRN ATIVAN AT HS TO HELP HER SLEEP.PT RESTED WELL THROGH THE NIGHT.VSS. Follow up:
--- NOTE | 2016-07-28 13:54 | NUR ---
A - NUTRITION FOLLOW-UP. PATIENT REPORTED GOOD APPETITE. PER PATIENT, CAN TOLERATE [place] AND GOT PERMISSION FROM MD TO HAVE PASTA WITH [place]. WEIGHT STABLE PER RECORD. LABS: GLU 118. MEDS: PREDNISONE DIET: LOW LACTOSE. INTAKE 75-100% ALL MEALS. EST NEEDS: [id number] KCAL, 51-61 GRAMS PROTEIN, FLUID NEEDS: 1ML/KCAL D - NUTRITION PROBLEM RESOLVED. M/E - GOAL: PT WILL CONTINUE TO CONSUME >75% OF MEALS IN 5-7 DAYS.
--- NOTE | 2016-07-28 14:46 | NUR ---
Significant Event: Pt denies pain. up ad heron in room. Went downstairs to cafeteria with family. Ambulates in brewer. Midline to right arm. Has had 1 bm so far today. Follow up:
--- NOTE | 2016-07-28 15:30 | NUR ---
[facility] to [facility] at [id number] about the possibility of getting the Remicade injections there going forward. She stated it would be fine, it just needed to be moved to either Fridays or Mondays. They are closed on Saturdays. 1535 Faby with [facility] stated patient signed up for yesterday and paid the first 2 premiums so it will start August 06. Patient has already turned in some paperwork for the Medicaid application. So if Medicaid goes thru would be her secondary insurance. 1540 Called Jess Macario but she was busy so spoke to Ivonne who answered the phone. Explained the situation with Saturdays and the cancer center. 1545 Ivonne called back and Dr. Hays okay with changing the Remicade to Monday.
--- NOTE | 2016-07-29 03:38 | NUR ---
Significant Event:PT AAOX3.PLEASANT WITH STAFF AND CARES.INDEPENDENT IN ROOM AND INDPENDENT WITH CARES. MIDLINE TO RIGHT UPPER ARM,FLUSHES WELL HAS GOOD BLOOD RETURNS. APPETITIE GOOD. DENIES PAIN WHEN ASKED. ATIVAN AT HS PER PT REQUEST. WILL GO TO [facility]ER CENTER FOR TREATMENT AT 10AM. WILL DISCHARGE TODAY WELL. USES CALL L[facility] APPROP.VSS. Follow up:
--- NOTE | 2016-07-29 08:00 | NUR ---
Spoke to Rosa, Charge Nurse, it is okay'd by the cancer center to have the rx administered there today? She said yes, because we were not discharging her until after she returns [place] [facility]. She has spoke to Kathryn at the cancer center. 0805 gave patient the application for the Remicade, she has 3 pages to fill out then her doctor need to fill in the last page. She could bring it to a follow up appointment. She had paperwork to return to Faby today. I offered to drop if off for her. She will discharge home this afternoon. Mentioned home infusion as an option once a payer source is secured. 08 Faby is out so gave the paperwork to Francie. 1120 Called Jess Macario. She will contact the cancer center and get them the orders they need for further care.
[2016-07-29 08:28] LABS: ANION GAP 10.6 (10.0-19.0); BLOOD UREA NITROGEN 15 mg/dL (6-24); CALCIUM 8.5 mg/dL (8.5-10.5); CHLORIDE 100 mMol/L (96-110); CO2 31 mMol/L (22-32); CREATININE 0.6 mg/dL (0.5-1.1); ESTIMATED GFR (MDRD EQUATION) > 60; POTASSIUM 3.6 mMol/L (3.7-5.1); SODIUM 138 mMol/L (135-145)
--- NOTE | 2016-07-29 15:47 | NUR ---
Significant Event: Pt up ad heron. Denies pain. Only had 1 stool today. Had Remacaid given IV over at the cancer center, was gone for a few hours. Will remove midline and dc to home later today. Follow up:
[2016-07-29] MEDS ORDERED: PEPCID20 MG PO (17:52)
[2016-07-29] MEDS ORDERED: FOLIC ACID 40400 MCG PO (17:53)
[2016-07-29] MEDS ORDERED: TYLENOL325 MG PO (17:55)
[2016-07-29] MEDS ORDERED: DELTASONE10 MG PO (18:03)
--- NOTE | 2016-07-29 18:31 | NUR ---
D:Orders received for patient to be dismissed. I:Dismissal instructions were prepared and reviewed with the patient by the virtual nurse using the computer technology. The following information was reviewed with the patient - diet and activity recommendations for home, abnormal s/s to report to MD if they occur, home medications/new prescription medications, need for pt to observe hazardous drug precautions x48 hrs at home due to remicade infusion, and plans for follow up appointment with Dr. Rodriguez in 2 weeks and need to call GI clinic and schedule follow up appointment with them in 2 weeks. Willis teaching given to and reviewed with pt on the following topics: Safe Mgt of Chemo in the Home (reviewed this for the Hazardous Drug precautions teaching, reiterated to pt she did not have chemo/cancer), Preventing DVT's, Pepcid, Folic Acid, and Discharge Instructions for Ulcerative Colitis. R:The patient verbalized understanding of above teaching and denied further questions at the time. P:The patient's primary nurse was informed that the dismissal teaching had been completed. She was going to take the paperwork in for the patient to sign. The patient will be dismissed this evening. Jessica MARRERO
--- NOTE | 2016-07-29 18:57 | NUR ---
D: dc to home at 1840. pt belongings sent with pt, states understanding of dc instructions.
== END 2016-07-29 19:00 | disposition disaster alternative care site (69) | DRG 386 ==
LOC: GMED 14:31 → GMSU 18:26 → GNTU 18:26 → GMSU 18:26 → GNTU 18:26 → GMSU 07-21 11:48
PROVIDERS: Emergency Medicine; Family Medicine; Physician Assistant; Physician Assistant Medical; ADMIT Family Medicine
PROC: 30233N1 Transfusion of Nonautologous Red Blood Cells into Peripheral Vein, Percutaneous Approach (ICD-10-PCS; 2016-07-17)
PROC: 30233N1 Transfusion of Nonautologous Red Blood Cells into Peripheral Vein, Percutaneous Approach (ICD-10-PCS; 2016-07-18)
PROC: 0DBN8ZX Excision of Sigmoid Colon, Via Natural or Artificial Opening Endoscopic, Diagnostic (ICD-10-PCS; principal; 2016-07-20)
DX: K51.90 Ulcerative colitis, unspecified, without complications (principal); D62 Acute posthemorrhagic anemia; E46 Unspecified protein-calorie malnutrition; R78.81 Bacteremia; E86.0 Dehydration; Z79.52 Long term (current) use of systemic steroids; E87.6 Hypokalemia; R00.0 Tachycardia, unspecified; R55 Syncope and collapse; B95.4 Other streptococcus as the cause of diseases classified elsewhere
CPT/HCPCS: C1751; J0171; J1200; J1720; J1745; J2270; J2405; J2543; J2920; J3370; J3480; J7030; J7040; J7042; J7050; J7512; P9016